=== PATIENT | female | born 1955 | race Caucasian/White ===

== ENCOUNTER → 2018-05-18 20:39 | Outpatient (CLI) | payer BC ==
[2013-11-01 06:43] VITALS: BMI 34.2
[~2018-05-18 20:39] MED LIST: CLONAZEPAM2 MG/TAB PO; EFFEXOR XR150 MG PO; GLUCOPHAGE1000 MG PO; LANTUS SOL100 UNIT/1 SQ; LEVOTHROID100 MCG PO; LISINOPRIL10 MG PO; LOPID600 MG PO; LYRICA300 MG PO; MEVACOR40 MG PO; MOBIC7.5 MG PO; ZIAC 10/6.25 MG1 TAB PO
== END | disposition home or self-care (01) ==
LOC: D.MAMMO 13:00
DX: Z12.31 Encounter for screening mammogram for malignant neoplasm of breast (principal)

== ENCOUNTER 2019-09-15 10:07 | Outpatient (CLI) | payer MEDICARE, BC ==
[~2019-09-15] VITALS: Ht 170.2 cm; Wt 72.7 kg
[2019-09-15 10:44] LABS: BASOPHILS 0.1 % (0-2); EOSINOPHILS 0.3 % (0-7); HEMATOCRIT 33.3 % (36.0-48.0); HEMOGLOBIN 11.5 g/dL (12-16); IMMATURE GRANULOCYTES 0.1 % (0-5); LYMPHOCYTES 5.2 % (15-50); MCH 31.1 pg (26.0-34.0); MCHC 34.5 g/dL (31.0-37.0); MEAN PLATELET VOLUME 9.5 fL (7.4-10.4); NEUTROPHILS 86.3 % (40-80); PLATELET COUNT 281 10x3/uL (130-400); RDW 22.2 % (11.5-14.5); WBC 7.2 10x3/uL (4.8-10.8)
[2019-09-15 10:49] LABS: APTT 31.7 SECONDS (22.8-39.4); INR 1.54 (0.85-1.17); PROTIME 17.9 SECONDS (11.6-15.0)
[2019-09-15 11:04] LABS: CALCIUM 8.9 mg/dL (8.5-10.1); CARBON DIOXIDE 25.8 mmol/L (21.0-32.0)
[2019-09-15] MEDS ORDERED: METHADONE5 MG PO (11:06)
[2019-09-15 11:07] LABS: POTASSIUM - SERUM 2.8 mmol/L (3.5-5.1)
[2019-09-15] MEDS ORDERED: OXYCODONE HCL10 MG PO (11:08)
--- NOTE | 2019-09-15 11:13 | NUR ---
1106-REC'D CALL FROM [facility] IN LAB WITH CRITICAL K OF 2.8.
--- NOTE | 2019-09-15 11:14 | NUR ---
1110-NOTIFIED BHARATHI AUGUSTINE RN IN SPECIALS OF CRITICAL POTASSIUM. NOTIFIED TO CONTACT ORDERING PHYSCIAN. WHICH IS RAINA ABDALLA CNP WITH OFFICE.
--- NOTE | 2019-09-15 11:15 | NUR ---
1111-CONTACTED [phone] WITH CRITICAL POTASSIUM. SPOKE WITH JAIMIE WHO WAS UNABLE TO GET DONG PATEL TO ANSWER PHONE. LEFT MY NUMBER [phone] AND NAME TO RETURN CALL FOR FURTHER ORDERS.
[2019-09-15 11:17] VITALS: BP 125/67; Ht 170.2 cm; Wt 72.7 kg
--- NOTE | 2019-09-15 12:48 | NUR ---
6097-RECEIVED RETURN CALL FROM [facility] REGARDING POTASSIUM LEVEL. NO NEW ORDERS AT THIS TIME. CONITNUE PROCEDURE SCHEDULED. NOTIFIED BHARATHI AUGUSTINE RN WITH SPECIALS.
--- NOTE | 2019-09-15 15:06 | NUR ---
PROCEDURE CANCELLED- MICELLE RM NEEDLE LOOM OPERATOR HELPER NOTIFIED BY DR LUIS
[2019-09-15 15:18] LABS: ALBUMIN 2.1 g/dL (3.4-5.0); CALCIUM 8.9 mg/dL (8.5-10.1); CARBON DIOXIDE 22.7 mmol/L (21.0-32.0)
[2019-09-15 15:35] LABS: BILIRUBIN - TOTAL 31.08 mg/dL (0.2-1.3); PROTEIN - SERUM 6.2 g/dL (6.4-8.2)
[2019-09-15 15:37] LABS: POTASSIUM - SERUM 2.7 mmol/L (3.5-5.1)
== END 2019-09-15 16:05 | disposition home or self-care (01) ==
LOC: D.SP 10:07 → D.CT 13:00 → D.SP 16:05
PROVIDERS: Specialist; ATTEND Family Medicine
DX: R18.8 Other ascites (principal)